=== PATIENT | female | born 1950 | race Caucasian/White ===

== ENCOUNTER → 2016-11-24 | Outpatient (CLI) | payer MEDICARE ==
[~2016-11-24] MED LIST: ACET65TA; ASPI325T; ATEN100T; FERR325T; HYDR25TA6; LISI10TA4; LISI20TA5; PERC5TAB8; PERC7.5T8; PRIL40CA; THERGRAN
[2016-11-24 18:23] LABS: ALBUMIN 3.9 GM/DL (3.2-5.2); ALBUMIN/GLOBULIN RATIO 1.3 (1.00-1.93); BILIRUBIN,TOTAL 0.4 MG/DL (0.2-1.0); CALCIUM LEVEL 8.6 MG/DL (8.8-10.2); CREATININE FOR GFR 1.11 MG/DL (0.55-1.02); GLOMERULAR FILTRATION RATE 52.2 (>45); POTASSIUM SERUM 4.2 MEQ/L (3.5-5.1); TOTAL PROTEIN 6.9 GM/DL (6.4-8.2)
== END ==
LOC: M WUC 10:56
PROVIDERS: ATTEND Nurse Practitioner Family
DX: I10 Essential (primary) hypertension (principal)

== ENCOUNTER → 2016-12-01 | Outpatient (CLI) | payer MEDICARE ==
--- NOTE | 2016-12-01 15:30 | ECGEPIP ---
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
== END ==
LOC: M EKG 14:52
PROVIDERS: ATTEND Orthopaedic Surgery
DX: I10 Essential (primary) hypertension (principal); I49.9 Cardiac arrhythmia, unspecified

== ENCOUNTER → 2017-01-09 | Outpatient (CLI) | payer MEDICARE ==
[2017-01-09 18:32] LABS: CALCIUM LEVEL 8.6 MG/DL (8.8-10.2); CREATININE FOR GFR 1.14 MG/DL (0.55-1.02); GLOMERULAR FILTRATION RATE 50.6 (>45); POTASSIUM SERUM 3.6 MEQ/L (3.5-5.1)
== END ==
LOC: M WUC 13:55
PROVIDERS: ATTEND Orthopaedic Surgery
DX: Z79.899 Other long term (current) drug therapy (principal)

== ENCOUNTER → 2017-10-04 | Outpatient (CLI) | payer MEDICARE ==
[2017-10-04 14:21] LABS: ALBUMIN 3.9 GM/DL (3.2-5.2); ALKALINE PHOSPHATASE 76 U/L (45-117); ALT/SGPT 30 U/L (12-78); ANION GAP 7 MEQ/L (8-16); AST/SGOT 22 U/L (7-37); BILIRUBIN,TOTAL 0.4 MG/DL (0.2-1.0); BLOOD UREA NITROGEN 18 MG/DL (7-18); CALCIUM LEVEL 8.4 MG/DL (8.8-10.2); CARBON DIOXIDE LEVEL 27 MEQ/L (21-32); CHLORIDE LEVEL 108 MEQ/L (98-107); CHOLESTEROL LEVEL 210 MG/DL (<200); CHOLESTEROL RISK RATIO 3.818 (<5); CREATININE FOR GFR 1.27 MG/DL (0.55-1.30); GLOMERULAR FILTRATION RATE 44.5 (>45); GLUCOSE, FASTING 99 MG/DL (70-100); HDL CHOLESTEROL 55 MG/DL (>40); NON-HDL-C 155 MG/DL; POTASSIUM SERUM 3.9 MEQ/L (3.5-5.1); SODIUM LEVEL 142 MEQ/L (136-145); TOTAL PROTEIN 6.9 GM/DL (6.4-8.2); TRIGLYCERIDES LEVEL 105 MG/DL (<150)
== END ==
LOC: M WUC 09:08
DX: I10 Essential (primary) hypertension (principal)
CPT/HCPCS: 80053

== ENCOUNTER → 2018-10-08 | Outpatient (CLI) | payer MEDICARE ==
[2018-10-08 13:45] LABS: ALBUMIN 4.1 GM/DL (3.2-5.2); BILIRUBIN,TOTAL 0.5 MG/DL (0.2-1.0); CALCIUM LEVEL 8.9 MG/DL (8.8-10.2); CHOLESTEROL RISK RATIO 2.761 (<5); CREATININE FOR GFR 1.31 MG/DL (0.55-1.30); GLOMERULAR FILTRATION RATE 42.9 (>45); POTASSIUM SERUM 4.2 MEQ/L (3.5-5.1); TOTAL PROTEIN 6.8 GM/DL (6.4-8.2)
== END ==
LOC: M WUC 09:36
PROVIDERS: ATTEND Nurse Practitioner Family
DX: I10 Essential (primary) hypertension (principal); E78.5 Hyperlipidemia, unspecified

== ENCOUNTER → 2019-06-04 | Outpatient (CLI) | payer MEDICARE ==
[2019-06-04 13:49] LABS: BILIRUBIN,TOTAL 0.5 MG/DL (0.2-1.0); CALCIUM LEVEL 9.3 MG/DL (8.8-10.2); CHOLESTEROL RISK RATIO 2.5 (<5); CREATININE FOR GFR 1.12 MG/DL (0.55-1.30); GLOMERULAR FILTRATION RATE 51.2 (>39); POTASSIUM SERUM 3.5 MEQ/L (3.5-5.1); TOTAL PROTEIN 7.2 GM/DL (6.4-8.2)
== END ==
LOC: M LAB 11:29
PROVIDERS: ATTEND Nurse Practitioner Family
DX: R10.13 Epigastric pain (principal); I10 Essential (primary) hypertension; E78.5 Hyperlipidemia, unspecified

== ENCOUNTER → 2020-06-09 | Outpatient (CLI) | payer MEDICAID, MEDICARE ==
[2020-06-09 13:53] LABS: BASO # 0.1 10^3/uL (0.0-0.2); EOS # 0.1 10^3/uL (0.0-0.5); HEMATOCRIT 38.2 % (36.0-47.0); HEMOGLOBIN 11.9 g/dl (12.0-15.5); LYMPH # 1.8 10^3/uL (1.5-5.0); LYMPH % 26.3 % (24.0-44.0); MEAN CORPUSCULAR HEMOGLOBIN 29.9 pg (27.0-33.0); MEAN CORPUSCULAR HGB CONC 31.2 g/dl (32.0-36.5); MONO # 0.7 10^3/uL (0.0-0.8); MONO % 9.9 % (0.0-5.0); NEUTROPHILS # 4.2 10^3/uL (1.5-8.5); NEUTROPHILS % 60.7 % (36.0-66.0); PLATELET COUNT, AUTOMATED 337 10^3/uL (150-450); RED BLOOD COUNT 3.98 10^6/uL (4.00-5.40); WHITE BLOOD COUNT 6.9 10^3/uL (4.0-10.0)
[2020-06-09 14:43] LABS: ALBUMIN 4.1 GM/DL (3.2-5.2); BILIRUBIN,TOTAL 0.6 MG/DL (0.2-1.0); CALCIUM LEVEL 9.7 MG/DL (8.8-10.2); CHOLESTEROL RISK RATIO 2.71 (<5); CREATININE FOR GFR 1.22 MG/DL (0.55-1.30); GLOMERULAR FILTRATION RATE 46.3 (>39); POTASSIUM SERUM 3.5 MEQ/L (3.5-5.1); THYROID STIMULATING HORMONE 1.44 uIU/ML (0.358-3.740); TOTAL 25(OH) VITAMIN D 49.6 NG/ML (30.0-100.0); TOTAL PROTEIN 7.6 GM/DL (6.4-8.2)
== END ==
LOC: M LAB 12:23
PROVIDERS: ATTEND Physician Assistant
DX: K21.9 Gastro-esophageal reflux disease without esophagitis (principal); F33.1 Major depressive disorder, recurrent, moderate; E78.2 Mixed hyperlipidemia; Z79.899 Other long term (current) drug therapy

== ENCOUNTER → 2020-06-14 | Outpatient (CLI) | payer MEDICARE ==
--- NOTE | 2020-06-14 12:14 | REP ---
INDICATION: SCIATICA, LEFT SIDE. COMPARISON: None. TECHNIQUE: Seven views including flexion extension lateral views. FINDINGS: There is a moderate levoconvex lumbar scoliosis. Vascular calcification is noted in a normal caliber aorta. Sacrum and SI joints are intact. Visualized bowel gas pattern is normal. Psoas margins are symmetric. On lateral radiographs, lumbar vertebral body heights are preserved and alignment is normal. There is no evidence of spondylolysis or spondylolisthesis. There are moderate degenerative disc changes throughout the lumbar spine and in the visualized lower thoracic levels. There is osteoarthritic facet sclerosis and hypertrophy bilaterally at L5-S1 and on the right in the mid lumbar levels associated with scoliosis. No bony destructive lesion is appreciated. IMPRESSION: Degenerative spondylosis changes. Moderate scoliosis, levoconvex. Some vascular calcification. No acute bony abnormality. No subluxation or instability on lateral views. <Electronically signed by Hakeem Buck > 06/14/20 [id number]
== END ==
LOC: M RAD 11:35
PROVIDERS: ATTEND Physician Assistant
DX: M54.32 Sciatica, left side (principal); M47.816 Spondylosis without myelopathy or radiculopathy, lumbar region; M41.86 Other forms of scoliosis, lumbar region

== ENCOUNTER → 2020-06-15 | Outpatient (CLI) | payer MEDICARE | LOC: M LABSMTC 14:15 | PROVIDERS: ATTEND Family Medicine | DX: Z20.828 Contact with and (suspected) exposure to other viral communicable diseases (principal) ==

== ENCOUNTER → 2020-08-07 | Outpatient (CLI) | payer MEDICARE ==
[~2020-08-07] MED LIST changes: +ASPI81TA26 PO; -ATEN100T; +ATEN100T PO; +CITA20TA7 PO; +D31000TA2 PO; +ESOM40CA35 PO; +FAMO40TA3 PO; +HYDR50TAB PO; +NIFE1TAB52 PO; +SIMV20TA22 PO; +SUCR1TAB56 PO; +TRAM100T21 PO; +VITATAB73 PO
== END ==
LOC: M LABSMTC 10:08
PROVIDERS: ATTEND Anesthesiology
DX: Z01.812 Encounter for preprocedural laboratory examination (principal); Z20.822 Contact with and (suspected) exposure to COVID-19

== ENCOUNTER 2020-08-12 09:03 | Day surgery (SDC) | payer MEDICARE ==
[~2020-08-12] VITALS: Ht 154.9 cm; Wt 61.1 kg
[~2020-08-12 09:03] MED LIST changes: +LIDOCAINE 2% 100MG/5ML SDV (FOR ANES.) As Ordered ONE; +NS 1,000 ML IV ONE; +fentaNYL 100 MCG/2 ML INJECTION (J3010) As Ordered ONE; +propofoL 200 MG/20 ML VIAL As Ordered ONE
--- OUTSIDE RECORDS SUMMARY | 2020-08-12 09:09 | CCD | Continuity of Care Document ---
Author Organization Unknown Address Unknown Phone Unavailable Care Team Providers Care Manufacturing Engineering Technologist Name Role Phone Juliana Villarreal D.O. AUTM [phone] Angelito Sanford M.D. AUTM [phone] Problems Active Problems Provider Date Essential hypertension Onset: 03/29/2020 Hypercholesterolemia TRUDI Brooks Onset: 05/12/2020 Raynaud's disease TRUDI Brooks Onset: 05/12/2020 Gastroesophageal reflux disease TRUDI Brooks Onset: 05/12/2020 Depressive disorder TRUDI Brooks Onset: 05/12/2020 Low back pain TRUDI Brooks Onset: 05/12/2020 Social History Type Date Description Comments Sex Unknown Tobacco Use Start: Unknown End: Unknown Quit 40 y ears ago Smoking Status Reviewed: 05/12/20 Quit 40 years ago ETOH Use Denies alcohol use Tobacco Use Start: Unknown End: Unknown Patient is a former smoker Recreational Drug Use Denies Drug Use Exercise Type/Frequency Exercises regularly Sun Exposure Does not use sunscreen Seat Belt/Car Seat Always uses seat belt Allergies, Adverse Reactions, Alerts Description No Known Drug Allergies Medications Active Medications SIG Qnty Indications Ordering Provide r Date Esomeprazole Magnesium 40mg Capsul es DR 1 by mouth every day 30caps Juliana Villarreal D.O. Tramadol HCL ER (Biphasic) 100mg Tablets ER 24HR take one tablet by mouth twice daily for pain MDD 2 Is top [id number] 60tabs Juliana Villarreal D.O. 05/12/2020 Simvastatin 20mg Tablets take one tablet by mouth each night 30tabs Nurys Dennis.O. 0 Procardia XL 30mg Tablets ER 24HR 1 tab by mouth daily 90tabs Nurys Denins.O. Atenolol 50mg Tablets 1 by mouth every day 90tabs Juliana Villarreal D.O. Hydrochlorothiazide 50mg Tablets 1 by mouth every day 90tabs Juliana Villarreal D.O. Citalopram Hydrobromide 20mg Table ts 1 by mouth every day 30tabs Juliana Villarreal D.O. Vitamin B Complex Tablets 1 by mouth every day Unknown Vitamin D3 50mcg (1999 Ut) Capsule s 1 by mouth every day Unknown Aspirin 81 Low Dose 81mg Chewtabs 1 by mouth every day Unknown Sucralfate 1gm Tablets by mouth four times a day and at bedtime 120tabs Nurys Dennis.O. Medications Administered in Office Medication SIG Qnty Indications Ordering Provider Date Immunization Administration Single Or Co mbination Injection Nurse 05/13/2020 Immunizations CPT Code Status Date Vaccine Lot # [id number] Given 05/13/2020 Influenza Virus Vaccine, Quadrivalent, Split, Preservative Free [id number] Vital Signs Date Vital Result Comment 05/12/2020 2:17pm BP Systolic 130 mmHg BP Diastolic 90 mmHg Height 58.6 inches 4'10.60" Weight 143.00 lb BMI (Body Mass Index) 29.3 kg/m2 Heart Rate 70 /min Respiratory Rate 16 /min Body Temperature 97.2 F O2 % BldC Oximetry 97 % [place] Body Weight 100 lb Results Test Acquired Date Facility Test Result H/L Range Note Coronavirus 2019 Nasopharygeal 06/15/2020 [facility] Outpa tient Testing (Registration) [address] [place] [address] [phone] Coronavirus 2019 Nasopharygeal This nucleic aci <SEE N OTE> 1 Laboratory test finding 06/09/2020 [facility] Outpatient T esting (Registration) [address] [place] [address] [phone] H Pylori Serum Quant IgG Caryl 0.27 Normal 0.0 0-0.79 2 CBC With Differential 06/09/2020 [facility] Outpatient [place] ting (Registration) [address] [place] [address] [phone] White Blood Count 6.9 10 Normal 4.0-10.0 Red Blood Count 3.98 10 Low 4.00-5.40 Hemoglobin 11.9 g/dL Low 12.0-15.5 Hematocrit 38.2 % Normal 36.0-47.0 Mean Corpuscular Volume 96.0 fl Normal 80.0-96.0 Mean Corpuscular Hemoglobin 29.9 pg Normal 27.0-33.0 Mean Corpuscular HGB Conc 31.2 g/dL Low 32.0-36.5 Red Cell Distribution Width 13.2 % Normal 11.5-14.5 Platelet Count, Automated 337 10 Normal 150-450 Neutrophils % 60.7 % Normal 36.0-66.0 Lymph % 26.3 % Normal 24.0-44.0 [place] % 9.9 % High 0.0-5.0 Eos % 2.0 % Normal 0.0-3.0 Baso % 1.0 % Normal 0.0-1.0 Immature Granulocyte % 0.1 % Normal 0-3.0 Nucleated Red Blood Cell % 0.0 % Normal 0-0 Neutrophils # 4.2 10 Normal 1.5-8.5 Lymph # 1.8 10 Normal 1.5-5.0 [place] # 0.7 10 Normal 0.0-0.8 Eos # 0.1 10 Normal 0.0-0.5 Baso # 0.1 10 Normal 0.0-0.2 Comprehensive Metabolic Profil 06/09/2020 [facility] Outpa tient Testing (Registration) [address] [place] [address] [phone] Glucose, Fasting 79 mg/dL Normal 70-100 Blood Urea Nitrogen 21 mg/dL High 7-18 Creatinine For GFR 1.22 mg/dL Normal 0.55-1.30 Glomerular Filtration Rate 46.3 Normal >39 3 Sodium Level 138 mEq/L Normal 136-145 Potassium Serum 3.5 mEq/L Normal 3.5-5.1 Chloride Level 102 mEq/L Normal 98-107 Carbon Dioxide Level 28 mEq/L Normal 21-32 Anion Gap 8 mEq/L Normal 8-16 Calcium Level 9.7 mg/dL Normal 8.8-10.2 Ast/Sgot 14 U/L Normal 7-37 Alt/SGPT 20 U/L Normal 12-78 Alkaline Phosphatase 64 U/L Normal 45-117 Bilirubin,Total 0.6 mg/dL Normal 0.2-1.0 Total Protein 7.6 GM/DL Normal 6.4-8.2 Albumin 4.1 GM/DL Normal 3.2-5.2 Albumin/Globulin Ratio 1.2 Normal 1.2-2.2 FT4&TSH Panel 06/09/2020 [facility] Outpatient Testi ng (Registration) [address] [place] [address] [phone] Thyroid Stimulating Hormone 1.440 uIU/ML Normal 0. 358-3.740 Free T4 1.00 ng/dL Normal 0.76-1.46 Lipid Panel 06/09/2020 [facility] Outpatient Testi ng (Registration) [address] [place] [address] [phone] Triglycerides Level 79 mg/dL Normal <150 Cholesterol Level 187 mg/dL Normal <200 HDL Cholesterol 69 mg/dL Normal >40 LDL Cholesterol 102 mg/dL High <100 Non-HDL-C 118 mg/dL Normal Cholesterol Risk Ratio 2.710 Normal <5 Laboratory test finding 06/09/2020 [facility] Outpatient T esting (Registration) [address] [place] [address] [phone] Total 25(Oh) Vitamin D 49.6 NG/ML Normal 30.0-100. 0 1 This nucleic acid amplificat ion test was developed and its performance characteristics determined by [employer]. Nucleic acid amplification tests include PCR and TMA. This test has not been FDA cleared or approved. This test has been authorized by FDA under an Emergency Use Authorization (EUA). This test is only authorized for the duration of time the declaration that circumstances exist justifying the authorization of the emergency use of in vitro diagnostic tests for detection of SARS-CoV-2 virus and/or diagnosis of COVID-19 infection under section 564(b)(1) of the Act, 21 U.S.C. 360bbb-3 (b) (1), unless the authorization is terminated or revoked sooner. When diagnostic testing is negative, the possibility of a false negative result should be considered in the context of a patient's recent exposures and the presence of clinical signs and symptoms consistent with COVID-19. An individual without symptoms of COVID-19 and who is not shedding SARS-CoV-2 virus would expect to have a negative (not detected) result in this assay. Performed at: [facility] [address] [facility], [place] [address] [id number] Independent Insurance Adjuster: Jacey Zee PhD, Phone: [phone] Detected 2 Result Units: Index Value Negative <0.80 Equivocal 0.80 - 0.89 Positive >0.89 Performed at: - [facility] [id number] Independent Insurance Adjuster: Lisha Villa MD, Phone: [phone] 3 Units are mL/min/1.73 m2 Chronic Kidney Disease Staging per NKF: Stage I & II GFR >=60 Normal to Mildly Decreased Stage III GFR 30-59 Moderately Decreased Stage IV GFR 15-29 Severely Decreased Stage V GFR <15 Very Little GFR Left ESRD GFR <15 on TERRITORY MANAGER Procedures Description No Information Available Medical Devices Description No Information Available Encounters Type Date Location Provider Dx Diagnosis Office Visit 05/13/2020 2:00p Family Medicine [facility] N becky Z23 Encounter for immunization Office Visit 05/12/2020 2:20p [facility] TRUDI Brooks K21.9 Gastro-esophageal reflux dis ease without esophagitis M54.32 Sciatica, left side F33.1 Major depressive disorder, r ecurrent, moderate Z12.31 Encntr screen mammogram for malignant neoplasm of breast I10 Essential (primary) hyperten aubrey E78.2 Mixed hyperlipidemia Assessments Date Code Description Provider 05/13/2020 Z23 Encounter for immunization Nurse 05/12/2020 K21.9 Gastro-esophageal reflux disease without esophagitis TRUDI Brooks 05/12/2020 M54.32 Sciatica, left side TRUDI Mueller 05/12/2020 F33.1 Major depressive disorder, recur rent, moderate TRUDI Brooks 05/12/2020 Z12.31 Encounter for screen ing mammogram for malignant neoplasm of breast TRUDI Brooks 05/12/2020 I10 Essential (primary) hypertension TRUDI Brooks 05/12/2020 E78.2 Mixed hyperlipidemia TRUDI Segura Plan of Treatment Future Appointment(s):* 06/23/2020 11:20 am - TRUDI Brooks at [facility] Functional Status Description No Information Available Mental Status Description No Information Available Referrals Refer to Reason for Referral Status Appt Date Angelito Sanford M.D. 69 year old female with sign ificant history of reflux and ulcers, in need of upper endoscopy, and due for colonoscopy. Please eval and treat. Sent [address] [id number] [phone]
--- OUTSIDE RECORDS SUMMARY | 2020-08-12 09:09 | CCD | Continuity of Care Document ---
Author Author Nurse, Kourtney Craig Organization Unknown Address [address] [place] [address] [address] [place] [address] Phone [phone] Care Team Providers Care Junior Php Developer Name Role Phone Juliana Villarreal D.O. AUTM [phone] Angelito Sanford M.D. AUTM [phone] Problems Active Problems Provider Date Essential hypertension [...] daily for pain MDD 2 Is top [id number] 60tabs Juliana Villarreal D.O. 05/12/2020 Simvastatin 20mg Tablets take one tablet by mouth each night 30tabs Juliana Villarreal, D.O. 0 Procardia XL 30mg Tablets ER 24HR 1 tab by mouth daily Unknown Atenolol 50mg Tablets 1 by mouth every day Unknown Hydrochlorothiazide 50mg Tablets 1 by mouth every day Unknown Citalopram Hydrobromide 20mg Table ts 1 by mouth every day 30tabs Juliana Villarreal D.O. Vitamin B Complex Tablets 1 by mouth every day Unknown Vitamin D3 50mcg (1999 Ut) Capsule s 1 by mouth every day Unknown Aspirin 81 Low Dose 81mg Chewtabs 1 by mouth every day Unknown Sucralfate 1gm Tablets by mouth four times a day and at bedtime 120tabs Juliana Villarreal D.O. Medications Administered in Office Medication SIG Qnty Indications Ordering Provider Date Immunization Administration Single Or Co mbination Injection Nurse 05/13/2020 Immunizations CPT Code Status Date Vaccine Lot # [id number] Given 05/13/2020 Influenza Virus Vaccine, Quadrivalent, Split, Preservative Free [id number] Vital Signs Date Vital Result Comment 05/12/2020 2:17pm BP Systolic 130 mmHg BP Diastolic 90 mmHg Height 58.6 inches 4'10.60" Weight 143.00 lb BMI (Body Mass Index) 29.3 kg/m2 Heart Rate 70 /min Respiratory Rate 16 /min Body Temperature 97.2 F O2 % BldC Oximetry 97 % [place] Body Weight 100 lb Results Description No Information Available Procedures Description No Information Available Medical Devices Description No Information Available Encounters Type Date Location Provider Dx Diagnosis Office Visit 05/13/2020 2:00p Family [facility] Tate pena Z23 Encounter for immunization Office Visit 05/12/2020 2:20p Family [facility] TRUDI Black K21.9 Gastro-esophageal reflux dis ease without esophagitis [...] 06/23/2020 11:20 am - TRUDI Brooks at [facility] Functional Status Description No Information Available Mental Status Description No Information Available Referrals Refer to Reason for Referral Status Appt Date Angelito Sanford M.D. 69 year old female with sign ificant history of reflux and ulcers, in need of upper endoscopy, and due for colonoscopy. Please eval and treat. Sent 826 [facility] [address] [place] [address] [phone]
--- OUTSIDE RECORDS SUMMARY | 2020-08-12 09:09 | CCD | Continuity of Care Document ---
Author Author Kourtney BECKER Organization Unknown Address [address] [place] [address] 6 [address] [place] [address] Phone [phone] Care Team Providers Care Hand Edge Bander Name Role Phone Juliana Villarreal D.O. AUTM Angelito Sanford M.D. AUTM [phone] Problems Active Problems Provider Date Essential hypertension [...] daily for pain MDD 2 Is top [id number] 60tabs Juliana Villarreal D.O. 05/12/2020 Simvastatin 20mg Tablets take one tablet by mouth each night 30tabs Juliana Villarreal D.O. 0 Procardia XL 30mg Tablets ER 24HR 1 tab by mouth daily 90tabs Nurys Dennis.O. Atenolol 50mg Tablets 1 by mouth every [...] CPT Code Status Date Vaccine Lot # [id number] Given 05/13/2020 Influenza Virus Vaccine, Quadrivalent, Split, Preservative Free [id number] Vital Signs Date Vital Result Comment 05/12/2020 2:17pm BP Systolic 130 mmHg BP Diastolic 90 mmHg Height 58.6 inches 4'10.60" Weight 143.00 lb BMI (Body Mass Index) 29.3 kg/m2 Heart Rate 70 /min Respiratory Rate 16 /min Body Temperature 97.2 F O2 % BldC Oximetry 97 % [place] Body Weight 100 lb Results Test Acquired Date Facility Test Result H/L Range Note Laboratory test finding 06/09/2020 [facility] Outpatient T leny (Registration) [address] [place] [address] [phone] H Pylori Serum Quant IgG Caryl 0.27 Normal 0.0 0-0.79 1 CBC With Differential 06/09/2020 [facility] Outpatient [place] jeronimo (Registration) [address] [place] [address] [phone] White Blood Count 6.9 10 Normal 4.0-10.0 [...] 36.0-66.0 Lymph % 26.3 % Normal 24.0-44.0 [place] % 9.9 % High 0.0-5.0 Eos % 2.0 % Normal 0.0-3.0 Baso % 1.0 % Normal 0.0-1.0 Immature Granulocyte % 0.1 % Normal 0-3.0 Nucleated Red Blood Cell % 0.0 % Normal 0-0 Neutrophils # 4.2 10 Normal 1.5-8.5 Lymph # 1.8 10 Normal 1.5-5.0 [place] # 0.7 10 Normal 0.0-0.8 Eos # 0.1 10 Normal 0.0-0.5 Baso # 0.1 10 Normal 0.0-0.2 Comprehensive Metabolic Profil 06/09/2020 [facility] Outpa tient Testing (Registration) [address] [place] [address] [phone] Glucose, Fasting 79 mg/dL Normal 70-100 Blood Urea Nitrogen 21 mg/dL High 7-18 Creatinine For GFR 1.22 mg/dL Normal 0.55-1.30 Glomerular Filtration Rate 46.3 Normal >39 2 Sodium Level 138 mEq/L Normal 136-145 Potassium [...] Ratio 1.2 Normal 1.2-2.2 FT4&TSH Panel 06/09/2020 [facility] Outpatient Testi ng (Registration) [address] [place] [address] [phone] Thyroid Stimulating Hormone 1.440 uIU/ML Normal 0. 358-3.740 Free T4 1.00 ng/dL Normal 0.76-1.46 Lipid Panel 06/09/2020 [facility] Outpatient Testi ng (Registration) [address] [place] [address] [phone] Triglycerides Level 79 mg/dL Normal <150 Cholesterol Level 187 mg/dL Normal <200 HDL Cholesterol 69 mg/dL Normal >40 LDL Cholesterol 102 mg/dL High <100 Non-HDL-C 118 mg/dL Normal Cholesterol Risk Ratio 2.710 Normal <5 Laboratory test finding 06/09/2020 [facility] Outpatient T esting (Registration) [address] [place] [address] [phone] Total 25(Oh) Vitamin D 49.6 NG/ML Normal 30.0-100. 0 1 Result Units: Index Value Negative <0.80 Equivocal 0.80 - 0.89 Positive >0.89 Performed at: RN - [facility] [address] [id number] Decorator Inspector: Lisha Villa MD, Phone: [phone] 2 Units are mL/min/1.73 m2 Chronic Kidney Disease Staging per NKF: Stage I & II GFR >=60 Normal to Mildly Decreased Stage III GFR 30-59 Moderately Decreased Stage IV GFR 15-29 Severely Decreased Stage V GFR <15 Very Little GFR Left ESRD GFR <15 on CERTIFIED MEDICAL DOSIMETRIST Procedures Description No Information Available Medical Devices Description No Information Available Encounters Type Date Location Provider Dx Diagnosis Office Visit 05/13/2020 2:00p Family Medicine [facility] Tate pen[place] Z23 Encounter for immunization Office Visit 05/12/2020 2:20p [facility] TRUDI Brooks K21.9 Gastro-esophageal reflux dis ease [...] colonoscopy. Please eval and treat. Sent [address] [address] [phone]
--- OUTSIDE RECORDS SUMMARY | 2020-08-12 09:09 | CCD | Continuity of Care Document ---
Author Author Kourtney BECKER Organization Unknown Address [address] [place] [address] 6 [address] [place] [address] Phone [phone] Care Team Providers Care Printing Film Stripper Name Role Phone Juliana Villarreal D.O. AUTM Angelito Sanford M.D. AUTM [phone] Problems Active Problems Provider Date Essential hypertension [...] daily for pain MDD 2 Is top [id number] 60tabs Juliana Villarreal D.O. 05/12/2020 Simvastatin 20mg [...] CPT Code Status Date Vaccine Lot # [id number] Given 05/13/2020 Influenza Virus Vaccine, Quadrivalent, Split, Preservative Free [id number] Vital Signs Date Vital Result Comment 05/12/2020 2:17pm BP Systolic 130 mmHg BP Diastolic 90 mmHg Height 58.6 inches 4'10.60" Weight 143.00 lb BMI (Body Mass Index) 29.3 kg/m2 Heart Rate 70 /min Respiratory Rate 16 /min Body Temperature 97.2 F O2 % BldC Oximetry 97 % [place] Body Weight 100 lb Results Description No Information Available Procedures Description No Information Available Medical Devices Description No Information Available Encounters Type Date Location Provider Dx Diagnosis Office Visit 05/13/2020 2:00p [facility] Tate pen[place] Z23 Encounter for immunization Office Visit 05/12/2020 2:20p Family [facility] TRUDI Brooks K21.9 Gastro-esophageal reflux dis [...] 06/23/2020 11:20 am - TRUDI Brooks at [facility] Functional Status Description No Information Available Mental Status Description No Information Available Referrals Refer to Dr Reason for Referral Status Appt Date Angelito Sanford M.D. 69 year old female with sign ificant history of reflux and ulcers, in need of upper endoscopy, and due for colonoscopy. Please eval and treat. Sent [address] [address] [phone]
--- OUTSIDE RECORDS SUMMARY | 2020-08-12 09:09 | CCD | Continuity of Care Document ---
Author Author Kourtney SANFORD MD Organization Unknown Address [address] [place] [address] Phone [phone] Care Team Providers Care Lock Maintenance Supervisor Name Role Phone Bao Martinez AUTM [phone] Juliana Villarreal D.O. AUTM Problems Active Problems Provider Date Essential hypertension Angelito Sanford JR, MD Onset: 07/07/20 20 Social History Type Date Description Comments Sex Unknown ETOH Use Denies alcohol use Tobacco Use Start: Unknown End: Patient is a former smoker Recreational Drug Use Denies Drug Use Allergies, Adverse Reactions, Alerts Description No Known Drug Allergies Medications Active Medications SIG Qnty Indications Ordering Provide r Date Famotidine 40mg Tablets 1 by mouth twice a day 60tabs Angelito Sanford JR, MD 07/07/2020 Tramadol HCL ER 100mg Tablets ER 24HR prn Bao Martinez RPA-C Sucralfate 1gm Tablets 1 tab po tid Bao Martinez RPA-C Atenolol 50mg Tablets 1 tab p o qd Bao Martinez, [facility] Citalopram Hydrobromide 20mg Table ts 1 tab po qd Bao Martinez, [facility] Esomeprazole Magnesium 40mg Capsul es DR 1 tab po qd Bao Martinez, [facility] Simvastatin 20mg Tablets 1 ta b po qd Bao Martinez, [facility] Hydrochlorothiazide 50mg Tablets Take One Tablet By Mouth Every Day Unknown Nifedipine ER Osmotic Release 30mg Tablets ER 24HR Take One Tablet By Mouth Every Day Unknow n Aspirin [address] take 1 tab by mouth daily Unknown Immunizations Description No Information Available Vital Signs Date Vital Result Comment 07/07/2020 9:32am BP Systolic 137 mmHg BP Diastolic 77 mmHg Height 60 inches 5'0" Weight 137.50 lb BMI (Body Mass Index) 26.9 kg/m2 [place] Body Weight 100 lb Weight 62.370 kg BSA (Body Surface Area) 1.59 m2 Results Description No Information Available Procedures Description No Information Available Medical Devices Description No Information Available Encounters Description No Information Available Assessments Description No Information Available Plan of Treatment No Information Available Functional Status Description No Information Available Mental Status Description No Information Available Referrals Refer to Reason for Referral Status Appt Date Angelito Sanford JR, MD COLONOSCOPY/EGD Scheduled 05/18/[address] [place] [address] [phone]
--- OUTSIDE RECORDS SUMMARY | 2020-08-12 09:09 | CCD ---
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 Name Role Phone Juan, Bao PA Unavailable Unavailable Juan, Bao PA Unavailable Unavailable Juan, Bao PA Unavailable Unavailable Juan, Bao PA Unavailable Unavailable Juan, Bao PA Unavailable Unavailable Juan, Bao PA Unavailable Unavailable Juan, Bao PA Unavailable Unavailable Juan, Bao PA Unavailable Unavailable Juan, Bao PA Unavailable Unavailable Juan, Bao PA Unavailable Unavailable Juan, Bao PA Unavailable Unavailable Juan, Bao PA Unavailable Unavailable Juan, Bao PA Unavailable Unavailable Juan, Bao PA Unavailable Unavailable Juan, Bao PA Unavailable Unavailable Juan, Bao PA Unavailable Unavailable Juan, Bao PA Unavailable Unavailable Juan, Bao PA Unavailable Unavailable Juan, Bao PA Unavailable Unavailable Juan, Bao PA Unavailable Unavailable Juan, Bao PA Unavailable Unavailable Juan, Bao PA Unavailable Unavailable Juan, Bao PA Unavailable Unavailable Juan, Bao PA Unavailable Unavailable Juan, Bao PA Unavailable Unavailable Juan, Bao PA Unavailable Unavailable Juan, Bao PA Unavailable Unavailable Juan, Bao PA Unavailable Unavailable Juan, Bao PA Unavailable Unavailable Juan, Bao PA Unavailable Unavailable Juan, Bao PA Unavailable Unavailable Juan, Bao PA Unavailable Unavailable Juan, Bao PA Unavailable Unavailable Juan, Bao PA Unavailable Unavailable Juan, Bao PA Unavailable Unavailable Juan, Bao PA Unavailable Unavailable Juan, Bao PA Unavailable Unavailable Juan, Bao PA Unavailable Unavailable Juan, Bao PA Unavailable Unavailable Juan, Bao PA Unavailable Unavailable Juan, Bao PA Unavailable Unavailable Juan, Bao PA Unavailable Unavailable Juan, Bao PA Unavailable Unavailable Juan, Bao PA Unavailable Unavailable Juan, Bao PA Unavailable Unavailable Juan, Bao PA Unavailable Unavailable Juan, Bao PA Unavailable Unavailable Juan, Bao PA Unavailable Unavailable [facility][id number], NA Unavailable Unavailable Re-disclosure Warning The records that you are about to access may contain information from federally-assisted alcohol or drug abuse programs. If such information is present, then the following federally mandated warning applies: This information has been disclosed to you from records protected by federal confidentiality rules (42 CFR part 2). The federal rules prohibit you from making any further disclosure of this information unless further disclosure is expressly permitted by the written consent of the person to whom it pertains or as otherwise permitted by 42 CFR part 2. A general authorization for the release of medical or other information is NOT sufficient for this purpose. The Federal rules restrict any use of the information to criminally investigate or prosecute any alcohol or drug abuse patient.The records that you are about to access may contain highly sensitive health information, the redisclosure of which is protected by Article 27-F of the [facility] Public Health law. If you continue you may have access to information: Regarding HIV / AIDS; Provided by facilities licensed or operated by the [facility] Office of Mental Health; or Provided by the [facility] Office for People With Developmental Disabilities. If such information is present, then the following [facility] mandated warning applies: This information has been disclosed to you from confidential records which are protected by state law. State law prohibits you from making any further disclosure of this information without the specific written consent of the person to whom it pertains, or as otherwise permitted by law. Any unauthorized further disclosure in violation of state law may result in a fine or detention sentence or both. A general authorization for the release of medical or other information is NOT sufficient authorization for further disc losure. Family History Family Member Name Family Member Gender Family Member Status Date o f Status Description Data Source(s) Unknown Unknown Problem [facility] ([facility]) Unknown Unknown Problem [facility] ([facility]) Unknown Unknown Problem [facility] ([facility]) Encounters Encounter Providers Location Date Indications Data Source(s ) Outpatient Attender: CAIN [id number] 05/13/2020 02:00:00 PM EDT [facility] ([facility]) Outpatient Attender: Bao BRUSH [facility] 05/12/2020 02:20:00 PM EDT [facility] ([facility]) Immunizations Vaccine Date Status Description Data Source(s) New in 2011. IIV4 05/13/2020 02:00:00 PM EDT completed [facility] ([facility]) Medications Medication Brand Name Start Date Product Form Dose Route Admi nistrative Instructions Pharmacy Instructions Status Indications Reaction Description Data Source(s) 1 gram 08/09/2020 12:00:00 AM EST tablet 120 TAKE ONE TABLET BY MOUTH FOUR TIMES A DAY BEFORE MEALS AND AT BEDTIME TAKE ONE TABLET BY MOUTH FOUR TIMES A DAY BEFORE MEALS AND AT BEDTIME SOLD: 08/10/2020 [facility] 17.5-3.13-1.6 gram 08/06/2020 12:00:00 AM EST recon soln 354 USE PER DRS INSTRUCTIONS USE PER DRS INSTRUCTIONS SOLD: 08/10/2020 [facility] 100 mg 08/03/2020 12:00:00 AM EST tablet extended release 24 hr 60 TAKE ONE TABLET BY MOUTH TWICE A DAY FOR PAIN MAXIMUM DAILY DOSE = 2 TABLETS TAKE ONE TABLET BY MOUTH TWICE A DAY FOR PAIN MAXIMUM DAILY DOSE = 2 TABLETS SOLD: 08/05/2020 [facility] Citalopram 20 MG Oral Tablet CITALOPRAM HYDROBROMIDE 07/12/2020 12:00:00 AM EST tablet 30 TAKE ONE TABLET BY MOUTH EVERY D AY TAKE ONE TABLET BY MOUTH EVERY DAY SOLD: 07/12/2020 [facility] Famotidine 40 MG Oral Tablet Famotidine 07/07/2020 12:00:00 AM EST ORAL active [facility] ([facility], ) Famotidine 40 MG Oral Tablet FAMOTIDINE 07/07/2020 12:00:00 AM EST tab let 60 TAKE ONE TABLET BY MOUTH TWICE A DAY TAKE ONE TABLET BY MOUTH TWICE A DAY SOLD: 07/12/2020 [facility] Famotidine 40 MG Oral Tablet FAMOTIDINE 07/07/2020 12:00:00 AM EST tab let 60 TAKE ONE TABLET BY MOUTH TWICE A DAY TAKE ONE TABLET BY MOUTH TWICE A DAY SOLD: 08/10/2020 [facility] Aten[facility]ol 50 MG Oral Tablet ATENOLOL 06/17/2020 12:00:00 AM EST tablet 90 TAKE ONE TABLET BY MOUTH EVERY DAY TAKE ONE TABLET BY MOUTH EVERY DAY SOLD: 06/18/2020 [facility] 30 mg 05/25/2020 12:00:00 AM EST tablet extended release 24hr 90 TAKE ONE TABLET BY MOUTH EVERY DAY TAKE ONE TABLET BY MOUTH EVERY DAY SOLD: 08/10/2020 [facility] Hydrochlorothiazide 50 MG Oral Tablet HYDROCHLOROTHIAZIDE 12:00:00 AM EST tablet 90 TAKE ONE TABLET BY MOUTH KARIE DAY TAKE ONE TABLET BY MOUTH EVERY DAY SOLD: 08/10/2020 [facility] Hydrochlorothiazide 50 MG Oral Tablet HYDROCHLOROTHIAZIDE 12:00:00 AM EST tablet 90 TAKE ONE TABLET BY MOUTH KARIE DAY TAKE ONE TABLET BY MOUTH EVERY DAY SOLD: 05/28/2020 [facility] 30 mg 05/25/2020 12:00:00 AM EST tablet extended release 24hr 90 TAKE ONE TABLET BY MOUTH EVERY DAY TAKE ONE TABLET BY MOUTH EVERY DAY SOLD: 05/28/2020 [facility] 1 gram 05/13/2020 12:00:00 AM EDT tablet 120 TAKE ONE TABLET BY MOUTH FOUR TIMES A DAY AND AT BEDTIME TAKE ONE TABLET BY MOUTH FOUR TIMES A DA Y AND AT BEDTIME SOLD: 06/18/2020 [facility] 20 mg 05/13/2020 12:00:00 AM EDT tablet 30 TAKE ONE TABLET BY MOUTH EVERY EVENING TAKE ONE TABLET BY MOUTH EVERY EVENING SOLD: 05/13/2020 [facility] Esomeprazole 40 MG Delayed Release Oral Capsule ESOMEPRAZOLE MAGNESIUM 05/13/2020 12:00:00 AM EDT capsule,delayed release(DR/EC) 25 TAKE ONE CAPSULE BY MOUTH EVERY DAY TAKE ONE CAPSULE BY MOUTH EVERY DAY SOLD: 05/18/2020 [facility] Esomeprazole 40 MG Delayed Release Oral Capsule ESOMEPRAZOLE MAGNESIUM 05/13/2020 12:00:00 AM EDT capsule,delayed release(DR/EC) 30 TAKE ONE CAPSULE BY MOUTH EVERY DAY TAKE ONE CAPSULE BY MOUTH EVERY DAY SOLD: 06/12/2020 [facility] 100 mg 05/13/2020 12:00:00 AM EDT tablet extended release 24 hr 50 TAKE ONE TABLET BY MOUTH TWICE A DAY NEEDED FOR PAIN MAXIMUM DAILY DOSE = TWO TABLETS TAKE ONE TABLET BY MOUTH TWICE A DAY NEEDED FOR PAIN MAXIMUM DAILY DOSE = TWO TABLETS SOLD: 05/18/2020 [facility] 40 mg 05/13/2020 12:00:00 AM EDT capsule,delayed release (DR/EC) 30 TAKE ONE CAPSULE BY MOUTH EVERY DAY TAKE ONE CAPSULE BY MOUTH EVERY DAY SOLD: 07/12/2020 [facility] 1 gram 05/13/2020 12:00:00 AM EDT tablet 100 TAKE ONE TABLET BY MOUTH FOUR TIMES A DAY AND AT BEDTIME TAKE ONE TABLET BY MOUTH FOUR TIMES A DA Y AND AT BEDTIME SOLD: 05/18/2020 [facility] 20 mg 05/13/2020 12:00:00 AM EDT tablet 30 TAKE ONE TABLET BY MOUTH EVERY DAY TAKE ONE TABLET BY MOUTH EVERY DAY SOLD: 05/13/2020 [facility] 40 mg 05/13/2020 12:00:00 AM EDT capsule,delayed release (DR/EC) 30 TAKE ONE CAPSULE BY MOUTH EVERY DAY TAKE ONE CAPSULE BY MOUTH EVERY DAY SOLD: 08/10/2020 [facility] Immunization Administration Single Or Combination 05/13/2020 12:00:00 AM EDT [facility] Medication administered onsite Citalopram 20 MG Oral Tablet CITALOPRAM HYDROBROMIDE 05/13/2020 12:00:00 AM EDT tablet 30 TAKE ONE TABLET BY MOUTH EVERY D AY TAKE ONE TABLET BY MOUTH EVERY DAY SOLD: 06/12/2020 [facility] 20 mg 05/13/2020 12:00:00 AM EDT tablet 30 TAKE ONE TABLET BY MOUTH EVERY EVENING TAKE ONE TABLET BY MOUTH EVERY EVENING SOLD: 07/12/2020 [facility] 100 mg 05/13/2020 12:00:00 AM EDT tablet extended release 24 hr 60 TAKE ONE TABLET BY MOUTH TWICE A DAY NEEDED FOR PAIN MAXIMUM DAILY DOSE = TWO TABLETS TAKE ONE TABLET BY MOUTH TWICE A DAY NEEDED FOR PAIN MAXIMUM DAILY DOSE = TWO TABLETS SOLD: 06/28/2020 [facility] 20 mg 05/13/2020 12:00:00 AM EDT tablet 30 TAKE ONE TABLET BY MOUTH EVERY EVENING TAKE ONE TABLET BY MOUTH EVERY EVENING SOLD: 08/10/2020 [facility] 20 mg 05/13/2020 12:00:00 AM EDT tablet 30 TAKE ONE TABLET BY MOUTH EVERY EVENING TAKE ONE TABLET BY MOUTH EVERY EVENING SOLD: 06/12/2020 [facility] Esomeprazole 40 MG Delayed Release Oral Capsule Esomeprazole Magnesium 05/12/2020 12:00:00 AM EDT ORAL active [facility] ([facility]) Tramadol HCL ER (Biphasic) Tramadol HCL ER (Biphasic) 2019 12:00:00 AM EDT ORAL active [facility] ([facility]) 1 gram 11/27/2019 12:00:00 AM EDT tablet 60 TAKE ONE TABLET BY MOUTH TWICE A DAY ON AN EMPTY STOMACH TAKE ONE TABLET BY MOUTH TWICE A DAY ON AN EMPTY STOMACH SOLD: 02/03/2020 [facility] 20 mg 11/27/2019 12:00:00 AM EDT tablet 30 TAKE ONE TABLET BY MOUTH EVERY EVENING TAKE ONE TABLET BY MOUTH EVERY EVENING SOLD: 11/28/2019 [facility] 20 mg 11/27/2019 12:00:00 AM EDT tablet 30 TAKE ONE TABLET BY MOUTH EVERY EVENING TAKE ONE TABLET BY MOUTH EVERY EVENING SOLD: 01/27/2020 [facility] 20 mg 11/27/2019 12:00:00 AM EDT tablet 30 TAKE ONE TABLET BY MOUTH EVERY EVENING TAKE ONE TABLET BY MOUTH EVERY EVENING SOLD: 12/27/2019 [facility] 1 gram 11/27/2019 12:00:00 AM EDT tablet 60 TAKE ONE TABLET BY MOUTH TWICE A DAY ON AN EMPTY STOMACH TAKE ONE TABLET BY MOUTH TWICE A DAY ON AN EMPTY STOMACH SOLD: 11/28/2019 [facility] 1 gram 11/27/2019 12:00:00 AM EDT tablet 60 TAKE ONE TABLET BY MOUTH TWICE A DAY ON AN EMPTY STOMACH TAKE ONE TABLET BY MOUTH TWICE A DAY ON AN EMPTY STOMACH SOLD: 12/27/2019 [facility] 50 mg 08/28/2019 12:00:00 AM EST tablet 120 TAKE ONE TABLET BY MOUTH EVERY 4 TO 6 HOURS NEEDED MAXIMUM DAILY DOSE = 4 TABLETS TAKE ONE TABLET BY MOUTH EVERY 4 TO 6 HOURS NEEDED MAXIMUM DAILY DOSE = 4 TABLETS SOLD: 02/17/2020 [facility] 50 mg 08/28/2019 12:00:00 AM EST tablet 120 TAKE ONE TABLET BY MOUTH EVERY 4 TO 6 HOURS NEEDED MAXIMUM DAILY DOSE = 4 TABLETS TAKE ONE TABLET BY MOUTH EVERY 4 TO 6 HOURS NEEDED MAXIMUM DAILY DOSE = 4 TABLETS SOLD: 01/18/2020 [facility] 50 mg 08/28/2019 12:00:00 AM EST tablet 120 TAKE ONE TABLET BY MOUTH EVERY 4 TO 6 HOURS NEEDED MAXIMUM DAILY DOSE = 4 TABLETS TAKE ONE TABLET BY MOUTH EVERY 4 TO 6 HOURS NEEDED MAXIMUM DAILY DOSE = 4 TABLETS SOLD: 09/27/2019 [facility] 50 mg 08/28/2019 12:00:00 AM EST tablet 120 TAKE ONE TABLET BY MOUTH EVERY 4 TO 6 HOURS NEEDED MAXIMUM DAILY DOSE = 4 TABLETS TAKE ONE TABLET BY MOUTH EVERY 4 TO 6 HOURS NEEDED MAXIMUM DAILY DOSE = 4 TABLETS SOLD: 08/28/2019 [facility] 50 mg 08/28/2019 12:00:00 AM EST tablet 120 TAKE ONE TABLET BY MOUTH EVERY 4 TO 6 HOURS NEEDED MAXIMUM DAILY DOSE = 4 TABLETS TAKE ONE TABLET BY MOUTH EVERY 4 TO 6 HOURS NEEDED MAXIMUM DAILY DOSE = 4 TABLETS SOLD: 12/15/2019 [facility] tramadol hydrochloride 50 MG Oral Tablet TRAMADOL HCL 08/28/2019 12:00:00 AM EST tablet 120 TAKE ONE TABLET BY MOUTH EVERY 4 TO 6 HOURS NEEDED MAXIMUM DAILY DOSE = 4 TABLETS TAKE ONE TABLET BY MOUTH EVERY 4 TO 6 HO URS NEEDED MAXIMUM DAILY DOSE = 4 TABLETS SOLD: 11/02/2019 [facility] 40 mg 08/20/2019 12:00:00 AM EST capsule,delayed release (DR/EC) 90 TAKE ONE CAPSULE BY MOUTH EVERY DAY TAKE ONE CAPSULE BY MOUTH EVERY DAY SOLD: 08/23/2019 [facility] 25 mg 08/20/2019 12:00:00 AM EST tablet 90 TAKE ONE TABLET BY MOUTH EVERY DAY TAKE ONE TABLET BY MOUTH EVERY DAY SOLD: 08/23/2019 [facility] 30 mg 08/20/2019 12:00:00 AM EST tablet extended release 24hr 90 TAKE ONE TABLET BY MOUTH EVERY DAY TAKE ONE TABLET BY MOUTH EVERY DAY SOLD: 02/26/2020 [facility] 25 mg 08/20/2019 12:00:00 AM EST tablet 90 TAKE ONE TABLET BY MOUTH EVERY DAY TAKE ONE TABLET BY MOUTH EVERY DAY SOLD: 11/11/2019 [facility] 40 mg 08/20/2019 12:00:00 AM EST capsule,delayed release (DR/EC) 90 TAKE ONE CAPSULE BY MOUTH EVERY DAY TAKE ONE CAPSULE BY MOUTH EVERY DAY SOLD: 04/15/2020 [facility] 30 mg 08/20/2019 12:00:00 AM EST tablet extended release 24hr 90 TAKE ONE TABLET BY MOUTH EVERY DAY TAKE ONE TABLET BY MOUTH EVERY DAY SOLD: 11/18/2019 [facility] 40 mg 08/20/2019 12:00:00 AM EST capsule,delayed release (DR/EC) 90 TAKE ONE CAPSULE BY MOUTH EVERY DAY TAKE ONE CAPSULE BY MOUTH EVERY DAY SOLD: 11/11/2019 [facility] 25 mg 08/20/2019 12:00:00 AM EST tablet 90 TAKE ONE TABLET BY MOUTH EVERY DAY TAKE ONE TABLET BY MOUTH EVERY DAY SOLD: 02/26/2020 [facility] 40 mg 08/20/2019 12:00:00 AM EST capsule,delayed release (DR/EC) 90 TAKE ONE CAPSULE BY MOUTH EVERY DAY TAKE ONE CAPSULE BY MOUTH EVERY DAY SOLD: 01/27/2020 [facility] 30 mg 08/20/2019 12:00:00 AM EST tablet extended release 24hr 90 TAKE ONE TABLET BY MOUTH EVERY DAY TAKE ONE TABLET BY MOUTH EVERY DAY SOLD: 08/23/2019 [facility] 50 mg 06/20/2019 12:00:00 AM EST tablet 90 TAKE ONE TABLET BY MOUTH EVERY DAY TAKE ONE TABLET BY MOUTH EVERY DAY SOLD: 12/22/2019 [facility] 50 mg 06/20/2019 12:00:00 AM EST tablet 90 TAKE ONE TABLET BY MOUTH EVERY DAY TAKE ONE TABLET BY MOUTH EVERY DAY SOLD: 03/26/2020 [facility] 50 mg 06/20/2019 12:00:00 AM EST tablet 90 TAKE ONE TABLET BY MOUTH EVERY DAY TAKE ONE TABLET BY MOUTH EVERY DAY SOLD: 09/15/2019 [facility] 50 mg 06/20/2019 12:00:00 AM EST tablet 90 TAKE ONE TABLET BY MOUTH EVERY DAY TAKE ONE TABLET BY MOUTH EVERY DAY SOLD: 06/22/2019 [facility] 1 gram 05/07/2019 12:00:00 AM EDT tablet 60 TAKE ONE TABLET BY MOUTH TWICE A DAY ON AN EMPTY STOMACH TAKE ONE TABLET BY MOUTH TWICE A DAY ON AN EMPTY STOMACH SOLD: 07/10/2019 [facility] 1 gram 05/07/2019 12:00:00 AM EDT tablet 60 TAKE ONE TABLET BY MOUTH TWICE A DAY ON AN EMPTY STOMACH TAKE ONE TABLET BY MOUTH TWICE A DAY ON AN EMPTY STOMACH SOLD: 09/15/2019 [facility] 1 gram 05/07/2019 12:00:00 AM EDT tablet 60 TAKE ONE TABLET BY MOUTH TWICE A DAY ON AN EMPTY STOMACH TAKE ONE TABLET BY MOUTH TWICE A DAY ON AN EMPTY STOMACH SOLD: 06/14/2019 [facility] 1 gram 05/07/2019 12:00:00 AM EDT tablet 60 TAKE ONE TABLET BY MOUTH TWICE A DAY ON AN EMPTY STOMACH TAKE ONE TABLET BY MOUTH TWICE A DAY ON AN EMPTY STOMACH SOLD: 08/08/2019 [facility] 1 gram 05/07/2019 12:00:00 AM EDT tablet 60 TAKE ONE TABLET BY MOUTH TWICE A DAY ON AN EMPTY STOMACH TAKE ONE TABLET BY MOUTH TWICE A DAY ON AN EMPTY STOMACH SOLD: 10/23/2019 [facility] 50 mg 03/19/2019 12:00:00 AM EDT tablet 120 TAKE ONE TABLET BY MOUTH EVERY 4 TO 6 HOURS MAXIMUM DAILY DOSE = SIX TABLETS TAKE ONE TABLET BY MOUTH EVERY 4 TO 6 HOURS MAXIMUM DAILY DOSE = SIX TABLETS SOLD: 07/10/2019 [facility] 50 mg 03/19/2019 12:00:00 AM EDT tablet 120 TAKE ONE TABLET BY MOUTH EVERY 4 TO 6 HOURS MAXIMUM DAILY DOSE = SIX TABLETS TAKE ONE TABLET BY MOUTH EVERY 4 TO 6 HOURS MAXIMUM DAILY DOSE = SIX TABLETS SOLD: 06/14/2019 [facility] 50 mg 03/19/2019 12:00:00 AM EDT tablet 120 TAKE ONE TABLET BY MOUTH EVERY 4 TO 6 HOURS MAXIMUM DAILY DOSE = SIX TABLETS TAKE ONE TABLET BY MOUTH EVERY 4 TO 6 HOURS MAXIMUM DAILY DOSE = SIX TABLETS SOLD: 08/06/2019 [facility] 20 mg 10/30/2018 12:00:00 AM EDT tablet 90 TAKE ONE TABLET BY MOUTH EVERY DAY TAKE ONE TABLET BY MOUTH EVERY DAY SOLD: 07/29/2019 [facility] 20 mg 10/30/2018 12:00:00 AM EDT tablet 90 TAKE ONE TABLET BY MOUTH EVERY DAY TAKE ONE TABLET BY MOUTH EVERY DAY SOLD: 07/29/2019 [facility] Insurance Providers Payer name Policy type / Coverage type Policy ID Covered alliance party ID Covered alliance party's relationship to ahuja Policy Ahuja Plan Information MEDICARE BLUE PPO 306 [id number] SP [id number] [id number] SP [id number] MEDICARE BLUE PPO [id number] SP [id number] BLUE CROSS MEDICARE ADVANTAGE [id number] S [id number] EXCELLUS MEDICARE BLUE PPO G [id number] Self [id number] EXCELLUS MEDICARE BLUE PPO G [id number] Self [id number] [facility] MEDIC[facility] COMPLETE G [id number] Self [id number] [facility] MEDICARE ADVANTAGE [id number] S [id number] [facility] MEDICARE [id number] S [id number] MEDICARE COMPLETE [id number] SP [id number] MEDICAID [id number] SP [id number] MEDICARE COMPLETE [id number] SP [id number] MEDICAID M [id number] MEDICARE COMPLETE-UH O [id number] S [id number] [place] () Workers Compensation [id number] Family Depend ent [id number] [facility] Commercial [id number] Self [id number] Workers Compensation Workers Compensation Self BCBS/[employer] Medigap Part B Self [facility] Commercial Self BS/W/Id#Prefix/W ALL #'S Medigap Part B Self MEDICARE COMPLETE [id number] SP [id number] [facility] [id number] SP [id number] [place] PPO [id number] SP [id number] [place] PPO 302/307 [id number] SP [id number] Problems, Conditions, and Diagnoses Code Display Name Description Problem Type Effective Dates Data Source(s) [id number] Essential hypertension Essential hypertension Problem 07/07/2020 12:00:00 AM EST [facility] ([facility], ) [id number] Low back pain Low back pain Problem 05/12/2020 12:00:00 AM EDT [facility] ([facility]) [id number] Depressive disorder Depressive disorder Problem 1 12:00:00 AM EDT [facility] ([facility]) [id number] Gastroesophageal reflux disease Gastroesophageal reflux disease Problem 05/12/2020 12:00:00 AM EDT [facility] ([facility]) [id number] Raynaud's disease Raynaud's disease Problem 05/12 12:00:00 AM EDT [facility] ([facility]) [id number] Hypercholesterolemia Hypercholesterolemia Problem 05/12/2020 12:00:00 AM EDT [facility] ([facility]) [id number] Essential hypertension Essential hypertension Problem 03/29/2020 12:00:00 AM EDT [facility] ([facility]) Results ID Date Data Source [id number] 08/07/2020 11:30:00 AM EST [facility] Name Value Range Interpretation Code Description Data Katelynn rce(s) Supporting Document(s) SARS coronavirus 2 RNA Not Detected [facility] [place] This lab was ordered by [facility] and reported by [facility]. ID Date Data Source [id number] 06/15/2020 02:05:00 PM EST [facility] Name Value Range Interpretation Code Description Data Katelynn rce(s) Supporting Document(s) [facility] ordered by [facility] and reported by [facility]. ID Date Data Source [id number] 06/15/2020 02:05:00 PM EST [facility] Name Value Range Interpretation Code Description Data Katelynn rce(s) Supporting Document(s) Coronavirus 2019 Nasopharygeal Laboratory test result [facility] ([facility]) This nucleic acid amplification test was developed and its performance characteristics determined by [employer]. Nucleic acid amplification tests include PCR and [...] detected) result in this assay. Performed at: [facility] [address] [place] [address] [id number] [employer]in[employer] Apprentice: Jacey Zee PhD, Phone: [phone] Detected ID Date Data Source [id number] 06/09/2020 02:14:00 PM EST [facility] ([facility]) Name Value Range Interpretation Code Description Data Katelynn rce(s) Supporting Document(s) Calcidiol [Mass/volume] in Serum or Plasma 49.6 ng/mL 30.0- 100.0 Normal (applies to non-numeric results) [facility] ([facility]) ID Date Data Source [id number] 06/09/2020 02:14:00 PM EST [facility] ([facility]) Name Value Range Interpretation Code Description Data Katelynn rce(s) Supporting Document(s) Triglycerides Level 79 mg/dL Normal (applies to non-nume thang results) [facility] HDL Cholesterol 69 mg/dL Normal (applies to non-numeric results) [facility]) Cholesterol Level 187 mg/dL Normal (applies to non-numeri c results) [facility]) Non-HDL-C 118 mg/dL Normal (applies to non-numeric resul ts) [facility]) LDL Cholesterol 102 mg/dL Above high normal [facility] ([facility]) Cholesterol Risk Ratio 2.710 Normal (applies to non-n umeric results) [facility]) ID Date Data Source [id number] 06/09/2020 02:14:00 PM EST [facility] ([facility]) Name Value Range Interpretation Code Description Data Katelynn rce(s) Supporting Document(s) Free T4 1.00 ng/dL 0.76-1.46 Normal (applies to non-numeric resul ts) [facility] ([facility]) Thyroid Stimulating Hormone 1.440 uIU/ML 0.358-3.740 Norm al (applies to non- numeric results) [facility] ([facility]) ID Date Data Source [id number] 06/09/2020 02:14:00 PM EST [facility] ([facility]) Name Value Range Interpretation Code Description Data Katelynn rce(s) Supporting Document(s) Glucose, Fasting 79 mg/dL 70-100 Normal (applies to non-numeric results) [facility] ([facility]) Blood Urea Nitrogen 21 mg/dL 7-18 Above high normal [facility] Creatinine For GFR 1.22 mg/dL 0.55-1.30 Normal (applies to non -numeric results) [facility] ([facility]) Sodium Level 138 meq/L 136-145 Normal (applies to non-numeric res ults) [facility] Glomerular Filtration Rate 46.3 Normal (applies to n on-numeric results) [facility] ([facility]) <content>Units are mL/min/1.73 m2</content>
<content></content>
<content>Chronic Kidney Disease Staging per NKF:</content>
<content></content>
<content>Stage I & II GFR >=60 Normal to Mildly Decreased</content>
<content>Stage III GFR 30- 59 Moderately Decreased</content>
<content>Stage IV GFR 15-29 Severely Decreased</content>
<content>Stage V GFR <15 Very Little GFR Left</content>
<content>ESRD GFR <15 on CUSTOM MILLER</content>
<content></content> Carbon Dioxide Level 28 meq/L 21-32 Normal (applies to non-num julián results) [facility] ([facility]) Chloride Level 102 meq/L 98-107 Normal (applies to non-numeric r esults) [facility] ([facility]) Potassium Serum 3.5 meq/L 3.5-5.1 Normal (applies to non-numeric results) [facility] ([facility]) Anion Gap 8 meq/L 8-16 Normal (applies to non-numeric resul ts) [facility] ([facility]) Calcium Level 9.7 mg/dL 8.8-10.2 Normal (applies to non-numeric re sults) [facility] Ast/Sgot 14 U/L 7-37 Normal (applies to non-numeric resul ts) [facility] ([facility]) Alt/SGPT 20 U/L 12-78 Normal (applies to non-numeric resul ts) [facility] ([facility]) Alkaline Phosphatase 64 U/L 45-117 Normal (applies to non-num julián results) [facility] ([facility]) Albumin 4.1 GM/DL 3.2-5.2 Normal (applies to non-numeric resul ts) [facility] ([facility]) Bilirubin,Total 0.6 mg/dL 0.2-1.0 Normal (applies to non-numeric results) [facility] ([facility]) Total Protein 7.6 GM/DL 6.4-8.2 Normal (applies to non-numeric re sults) [facility] ([facility]) Albumin/Globulin Ratio 1.2 1.2-2.2 Normal (applies to non-n umeric results) [facility]) ID Date Data Source [id number] 06/09/2020 02:14:00 PM EST [facility] ([facility]) Name Value Range Interpretation Code Description Data Katelynn rce(s) Supporting Document(s) Red Blood Count 3.98 10 4.00-5.40 Below low normal [facility] ([facility]) White Blood Count 6.9 10 4.0-10.0 Normal (applies to non-numeri c results) [facility] ([facility]) Hematocrit 38.2 % 36.0-47.0 Normal (applies to non-numeric resul ts) [facility] ([facility]) Hemoglobin 11.9 g/dL 12.0-15.5 Below low normal [facility] ( [facility]) Mean Corpuscular Volume 96.0 fl 80.0-96.0 Normal ( applies to non-numeric results) [facility] ([facility]) Mean Corpuscular Hemoglobin 29.9 pg 27.0-33.0 Norm al (applies to non-numeric results) [facility]) Mean Corpuscular HGB Conc 31.2 g/dL 32.0-36.5 Below low normal [facility]) Red Cell Distribution Width 13.2 % 11.5-14.5 Norm al (applies to non-numeric results) [facility] ([facility]) Neutrophils % 60.7 % 36.0-66.0 Normal (applies to non-numeric re sults) [facility] ([facility]) Platelet Count, Automated 337 10 150-450 Normal (applies to non-numeric results) [facility] ([facility]) Wagoner % 9.9 % 0.0-5.0 Above high normal [facility] ([facility]) Lymph % 26.3 % 24.0-44.0 Normal (applies to non-numeric resul ts) [facility] ([facility]) Eos % 2.0 % 0.0-3.0 Normal (applies to non-numeric resul ts) [facility] ([facility]) Immature Granulocyte % 0.1 % 0-3.0 Normal (applies to non-n umeric results) [facility] ([facility]) Baso % 1.0 % 0.0-1.0 Normal (applies to non-numeric resul ts) [facility] ([facility]) Nucleated Red Blood Cell % 0.0 % 0-0 Normal (applies to n on-numeric results) [facility] ([facility]) Neutrophils # 4.2 10 1.5-8.5 Normal (applies to non-numeric re sults) [facility] ([facility]) Lymph # 1.8 10 1.5-5.0 Normal (applies to non-numeric resul ts) [facility] ([facility]) Eos # 0.1 10 0.0-0.5 Normal (applies to non-numeric resul ts) [facility] ([facility]) Wagoner # 0.7 10 0.0-0.8 Normal (applies to non-numeric resul ts) [facility] ([facility]) Baso # 0.1 10 0.0-0.2 Normal (applies to non-numeric resul ts) [facility] ([facility]) ID Date Data Source [id number] 06/09/2020 02:14:00 PM EST [facility] ([facility]) Name Value Range Interpretation Code Description Data Katelynn rce(s) Supporting Document(s) Helicobacter pylori IgG Ab [Units/volume] in Serum 0.27 0.00-0.79 Normal (applies to non-numeric results) [facility] ([facility]) <content>Result Units: Index Value</cont ent>
<content>Negative <0.80</content>
<content>Equivocal 0.80 - 0.89</content>
<content>Positive >0.89</content>
<content> Performed at: RN - [facility]</content>
<content>[address], [place] [id number]</content>
<content>[employer]: Lisha Villa MD, Phone: [phone]</content>
<content></content> Procedure Social History Code Duration Value Status Description Data Source(s ) Smoking 05/12/2020 12:00:00 AM EDT Quit completed Quit [facility] ([facility]) Vital Signs ID Date Data Source UNK Name Value Range Interpretation Code Description Data Source(s) Body surface area Derived from formula 1.59 m2 1.59 m2 [facility] ([facility]) Body weight 62.370 kg 62.370 kg [facility] ([facility]) Martin body weight 100 [lb_av] 100 [lb_av] [facility] ([facility]) Body mass index (BMI) [Ratio] 26.9 kg/m2 26.9 k g/m2 [facility] ([facility]) Body weight 137.50 [lb_av] 137.50 [lb_av] [facility] Body height 60 [in_i] 60 [in_i] [facility] ([facility]) 5'0" Diastolic blood pressure 77 mm[Hg] 77 mm[Hg] [facility] ([facility]) Systolic blood pressure 137 mm[Hg] 137 mm[Hg] M [facility] ([facility]) Martin body weight 100 [lb_av] 100 [lb_av] [facility] ([facility]) Oxygen saturation in Arterial blood by Pulse oximetry 97 % 97 % [facility] ([facility]) Body temperature 97.2 [degF] 97.2 [degF] [facility] ([facility]) Respiratory rate 16 /min 16 /min [facility] ( [facility]) Heart rate 70 /min 70 /min [facility] ([facility]) Body mass index (BMI) [Ratio] 29.3 kg/m2 29.3 k g/m2 [facility] ([facility]) Body weight 143.00 [lb_av] 143.00 [lb_av] [facility] ([facility]) Body height 58.6 [in_i] 58.6 [in_i] [facility] ([facility]) 4'10.60" Diastolic blood pressure 90 mm[Hg] 90 mm[Hg] [facility] ([facility]) Systolic blood pressure 130 mm[Hg] 130 mm[Hg] [facility] ([facility])
[2020-08-12] MEDS ORDERED: FLEET ENEMA PR ONE (10:00)
--- NOTE | 2020-08-12 10:47 | ROOR ---
Patient Name: Kourtney Marie Procedure Date: 08/12/2020 10:32 AM Date of : 1950 Age: 70 Room: [facility] Gender: Female Note Status: Finalized Procedure: Upper GI endoscopy Indications: Suspected esophageal reflux Providers: Angelito Sanford Jr, MD Referring MD: Juliana MACDONALD DO Requesting Provider: Medicines: Propofol per Anesthesia Complications: No immediate complications. Procedure: Pre-Anesthesia Assessment: - Prior to the procedure, a History and Physical was performed, and patient medications and allergies were reviewed. The patient is competent. The risks and benefits of the procedure and the sedation options and risks were discussed with the patient. All questions were answered and informed consent was obtained. Patient identification and proposed procedure were verified by the physician and the nurse in the pre-procedure area and in the procedure room. Mental Status Examination: alert and oriented. Airway Examination: normal oropharyngeal airway and neck mobility. Respiratory Examination: clear to auscultation. CV Examination: normal. ASA Grade Assessment: II - A patient with mild systemic disease. After reviewing the risks and benefits, the patient was deemed in satisfactory condition to undergo the procedure. The anesthesia plan was to use moderate sedation / analgesia (conscious sedation). Immediately prior to administration of medications, the patient was re-assessed for adequacy to receive sedatives. The heart rate, respiratory rate, oxygen saturations, blood pressure, adequacy of pulmonary ventilation, and response to care were monitored throughout the procedure. The physical status of the patient was re-assessed after the procedure. The Endoscope was introduced through the mouth, and advanced to the duodenal bulb. The upper GI endoscopy was accomplished without difficulty. The patient tolerated the procedure well. Findings: The upper third of the esophagus, middle third of the esophagus and lower third of the esophagus were normal. A large hiatal hernia was present. The gastric body, gastric antrum, prepyloric region of the stomach and pylorus were normal. Localized moderately erythematous mucosa without bleeding was found in the gastric fundus. Biopsies were taken with a cold forceps for histology. The duodenal bulb and first portion of the duodenum were normal. Impression: - Normal upper third of esophagus, middle third of esophagus and lower third of esophagus. - Large hiatal hernia. - Normal gastric body, antrum, prepyloric region of the stomach and pylorus. - Erythematous mucosa in the gastric fundus. Biopsied. - Normal duodenal bulb and first portion of the duodenum. Recommendation: - Discharge patient to home (ambulatory). - Return to my office as previously scheduled. Procedure Code(s): --- Professional --- 33547, Esophagogastroduodenoscopy, flexible, transoral; with biopsy, single or multiple Diagnosis Code(s): --- Professional --- K44.9, Diaphragmatic hernia without obstruction or gangrene K31.89, Other diseases of stomach and duodenum CPT copyright 2019 [employer]. All rights reserved. The codes documented in this report are preliminary and upon lotus notes developer review may be revised to meet current compliance requirements. Angelito Sanford MD Angelito Sanford Jr, MD 08/12/2020 10:47:24 AM Electronically signed by Angelito Sanford Jr, MD Number of Addenda: 0 Note Initiated On: 08/12/2020 10:32 AM Estimated Blood Loss: Estimated blood loss: none.
[2020-08-12] MEDS ORDERED: PHENYLephrine 500MCG 5ML (100MCG/ML) SYRINGE As Ordered ONE (10:51)
--- NOTE | 2020-08-12 11:07 | ROOR ---
Patient Name: Kourtney Marie Procedure Date: 08/12/2020 10:33 AM Date of : 1950 Age: 70 Room: [facility] Gender: Female Note Status: Finalized Procedure: Colonoscopy Indications: Screening for colorectal malignant neoplasm Providers: Angelito Sanford Jr, MD Referring MD: Juliana MACDONALD DO Requesting Provider: Medicines: Propofol per Anesthesia Complications: No immediate complications. Procedure: Pre-Anesthesia Assessment: - Prior to the procedure, a History and Physical was performed, and patient medications and allergies were reviewed. The patient is competent. The risks and benefits of the procedure and the sedation options and risks were discussed with the patient. All questions were answered and informed consent was obtained. Patient identification and proposed procedure were verified by the physician and the nurse in the pre-procedure area and in the procedure room. Mental Status Examination: alert and oriented. Airway Examination: normal oropharyngeal airway and neck mobility. Respiratory Examination: clear to auscultation. CV Examination: normal. ASA Grade Assessment: II - A patient with mild systemic disease. After reviewing the risks and benefits, the patient was deemed in satisfactory condition to undergo the procedure. The anesthesia plan was to use moderate sedation / analgesia (conscious sedation). Immediately prior to administration of medications, the patient was re-assessed for adequacy to receive sedatives. The heart rate, respiratory rate, oxygen saturations, blood pressure, adequacy of pulmonary ventilation, and response to care were monitored throughout the procedure. The physical status of the patient was re-assessed after the procedure. The Colonoscope was introduced through the anus and advanced to the cecum, identified by appendiceal orifice and ileocecal valve. The colonoscopy was performed without difficulty. The patient tolerated the procedure well. The quality of the bowel preparation was adequate. Findings: The rectum, recto-sigmoid colon, descending colon, transverse colon, ascending colon, cecum and appendiceal orifice appeared normal. Multiple small and large-mouthed diverticula were found in the sigmoid colon. Non-bleeding internal hemorrhoids were found during endoscopy. The hemorrhoids were medium-sized. A diffuse area of severe melanosis was found in the entire colon. Impression: - The rectum, recto-sigmoid colon, descending colon, transverse colon, ascending colon, cecum and appendiceal orifice are normal. - Diverticulosis in the sigmoid colon. - Non-bleeding internal hemorrhoids. - Melanosis in the colon. - No specimens collected. Recommendation: - Discharge patient to home (ambulatory). - Repeat colonoscopy in 10 years for screening purposes. Procedure Code(s): --- Professional --- 75257, Colonoscopy, flexible; diagnostic, including collection of specimen(s) by brushing or washing, when performed (separate procedure) Diagnosis Code(s): --- Professional --- Z12.11, Encounter for screening for malignant neoplasm of colon K64.8, Other hemorrhoids K63.89, Other specified diseases of intestine K57.30, Diverticulosis of large intestine without perforation or abscess without bleeding CPT copyright 2019 [employer]. All rights reserved. The codes documented in this report are preliminary and upon concession stand attendant review may be revised to meet current compliance requirements. Angelito Sanford MD Angelito Sanford Jr, MD 08/12/2020 11:06:40 AM Electronically signed by Angelito Sanford Jr, MD Number of Addenda: 0 Note Initiated On: 08/12/2020 10:33 AM Estimated Blood Loss: Estimated blood loss: none.
[2020-08-12 11:30] VITALS: BP 139/79
== END 2020-08-12 11:45 | disposition home or self-care (01) ==
LOC: M OPP 09:03
PROVIDERS: ATTEND Surgery
DX: Z12.11 Encounter for screening for malignant neoplasm of colon (principal); K21.9 Gastro-esophageal reflux disease without esophagitis; K57.30 Diverticulosis of large intestine without perforation or abscess without bleeding; K64.8 Other hemorrhoids; K63.89 Other specified diseases of intestine; D13.1 Benign neoplasm of stomach; K44.9 Diaphragmatic hernia without obstruction or gangrene; K31.89 Other diseases of stomach and duodenum; I10 Essential (primary) hypertension; E78.5 Hyperlipidemia, unspecified; R12 Heartburn; F32.9 Major depressive disorder, single episode, unspecified; F41.9 Anxiety disorder, unspecified; Z79.82 Long term (current) use of aspirin; Z79.899 Other long term (current) drug therapy
CPT/HCPCS: 43239; 88305; G0121; J2370; J3010

== ENCOUNTER → 2020-12-01 | Outpatient (CLI) | payer MEDICAID, MEDICARE ==
[~2020-12-01] MED LIST changes: -LIDOCAINE 2% 100MG/5ML SDV (FOR ANES.) As Ordered ONE; -NS 1,000 ML IV ONE; -fentaNYL 100 MCG/2 ML INJECTION (J3010) As Ordered ONE; -propofoL 200 MG/20 ML VIAL As Ordered ONE
== END ==
LOC: M LABSMTC 12:22
PROVIDERS: ATTEND Specialist
DX: Z20.822 Contact with and (suspected) exposure to COVID-19 (principal); K21.9 Gastro-esophageal reflux disease without esophagitis; K44.9 Diaphragmatic hernia without obstruction or gangrene

== ENCOUNTER → 2020-12-01 | Outpatient (CLI) | payer MEDICARE | LOC: M LAB 12:45 | PROVIDERS: ATTEND Specialist | DX: E87.6 Hypokalemia (principal) ==

== ENCOUNTER → 2021-01-28 | Outpatient (CLI) | payer MEDICARE ==
[2021-01-28 13:42] LABS: BASO # 0.1 10^3/uL (0.0-0.2); BASO % 0.9 % (0.0-1.0); EOS # 0.2 10^3/uL (0.0-0.5); EOS % 2.6 % (0.0-3.0); HEMATOCRIT 37.3 % (36.0-47.0); HEMOGLOBIN 11.8 g/dl (12.0-15.5); LYMPH % 28.9 % (24.0-44.0); MEAN CORPUSCULAR HEMOGLOBIN 31.1 pg (27.0-33.0); MEAN CORPUSCULAR HGB CONC 31.6 g/dl (32.0-36.5); MEAN CORPUSCULAR VOLUME 98.4 fl (80.0-96.0); MONO # 0.6 10^3/uL (0.0-0.8); MONO % 7.8 % (2.0-8.0); NEUTROPHILS # 4.2 10^3/uL (1.5-8.5); NEUTROPHILS % 59.5 % (36.0-66.0); PLATELET COUNT, AUTOMATED 318 10^3/uL (150-450); RED BLOOD COUNT 3.79 10^6/uL (4.00-5.40); WHITE BLOOD COUNT 7.1 10^3/uL (4.0-10.0)
[2021-01-28 14:05] LABS: CALCIUM LEVEL 9.4 MG/DL (8.8-10.2); CREATININE FOR GFR 1.04 MG/DL (0.55-1.30); GLOMERULAR FILTRATION RATE 55.6 (>39); MAGNESIUM LEVEL 1.8 MG/DL (1.8-2.4); POTASSIUM SERUM 4.1 MEQ/L (3.5-5.1)
[2021-01-29 18:16] LABS: Lyme Disease IgG/IgM Antibodie <0.91 ISR (0.00-0.90); Lyme Disease IgM Ab Quantitati <0.80 index (0.00-0.79)
== END ==
LOC: M LAB 13:05
PROVIDERS: ATTEND Physician Assistant
DX: K44.9 Diaphragmatic hernia without obstruction or gangrene (principal); E87.6 Hypokalemia; S20.461A Insect bite (nonvenomous) of right back wall of thorax, initial encounter

== ENCOUNTER → 2022-02-16 | Outpatient (CLI) | payer MEDICARE ==
[~2022-02-16] MED LIST changes: -D31000TA2 PO; +VITA100093 PO
[2022-02-16 16:33] LABS: BASO # 0.1 10^3/uL (0.0-0.2); BASO % 1.1 % (0.0-1.0); EOS # 0.2 10^3/uL (0.0-0.5); EOS % 2.4 % (0.0-3.0); HEMATOCRIT 38.8 % (36.0-47.0); HEMOGLOBIN 12.1 g/dl (12.0-15.5); LYMPH # 2.2 10^3/uL (1.5-5.0); LYMPH % 34.6 % (24.0-44.0); MEAN CORPUSCULAR HEMOGLOBIN 31.8 pg (27.0-33.0); MEAN CORPUSCULAR HGB CONC 31.2 g/dl (32.0-36.5); MEAN CORPUSCULAR VOLUME 101.8 fl (80.0-96.0); MONO # 0.5 10^3/uL (0.0-0.8); MONO % 7.2 % (2.0-8.0); NEUTROPHILS # 3.4 10^3/uL (1.5-8.5); NEUTROPHILS % 54.4 % (36.0-66.0); PLATELET COUNT, AUTOMATED 284 10^3/uL (150-450); RED BLOOD COUNT 3.81 10^6/uL (4.00-5.40); WHITE BLOOD COUNT 6.2 10^3/uL (4.0-10.0)
[2022-02-16 17:21] LABS: ALBUMIN 3.8 GM/DL (3.2-5.2); BILIRUBIN,TOTAL 0.5 MG/DL (0.2-1.0); CHOLESTEROL RISK RATIO 2.75 (<5); CREATININE FOR GFR 1.2 MG/DL (0.55-1.30); FREE T4 0.87 NG/DL (0.76-1.46); POTASSIUM SERUM 3.9 MEQ/L (3.5-5.1); THYROID STIMULATING HORMONE 1.98 uIU/ML (0.358-3.740); TOTAL PROTEIN 7.4 GM/DL (6.4-8.2)
== END ==
LOC: M WUC 11:56
PROVIDERS: ATTEND Family Medicine
DX: I10 Essential (primary) hypertension (principal); E78.2 Mixed hyperlipidemia; M51.36 Other intervertebral disc degeneration, lumbar region

== ENCOUNTER → 2022-08-23 | Outpatient (CLI) | payer MEDICARE ==
[2022-08-23 16:39] LABS: BASO # 0.1 10^3/uL (0.0-0.2); EOS # 0.1 10^3/uL (0.0-0.5); EOS % 1.5 % (0.0-3.0); HEMATOCRIT 37.7 % (36.0-47.0); LYMPH # 1.9 10^3/uL (1.5-5.0); LYMPH % 26.2 % (24.0-44.0); MEAN CORPUSCULAR HEMOGLOBIN 32.5 pg (27.0-33.0); MEAN CORPUSCULAR HGB CONC 31.8 g/dl (32.0-36.5); MEAN CORPUSCULAR VOLUME 102.2 fl (80.0-96.0); MONO # 0.5 10^3/uL (0.0-0.8); MONO % 7.5 % (2.0-8.0); NEUTROPHILS # 4.5 10^3/uL (1.5-8.5); NEUTROPHILS % 63.5 % (36.0-66.0); PLATELET COUNT, AUTOMATED 308 10^3/uL (150-450); RED BLOOD COUNT 3.69 10^6/uL (4.00-5.40); WHITE BLOOD COUNT 7.1 10^3/uL (4.0-10.0)
[2022-08-23 17:30] LABS: ALBUMIN 3.8 G/DL (3.2-5.2); BILIRUBIN,TOTAL 0.5 MG/DL (0.3-1.2); CALCIUM LEVEL 9.7 MG/DL (8.3-10.6); CHOLESTEROL RISK RATIO 3.51 (<5); CREATININE FOR GFR 1.14 MG/DL (0.55-1.30); FREE T4 0.93 NG/DL (0.89-1.76); GLOMERULAR FILTRATION RATE 49.7 (>39); HDL CHOLESTEROL 54.1 MG/DL (>40); LDL CHOLESTEROL 113.1 MG/DL (<100); POTASSIUM SERUM 4.2 MMOL/L (3.5-5.1); THYROID STIMULATING HORMONE 2.286 uIU/ML (0.55-4.78); TOTAL PROTEIN 7.2 G/DL (5.7-8.2)
== END ==
LOC: M WUC 10:19
PROVIDERS: ATTEND Family Medicine
DX: E78.2 Mixed hyperlipidemia (principal); I10 Essential (primary) hypertension

== ENCOUNTER → 2022-11-24 | Outpatient (CLI) | payer MEDICARE ==
[2022-11-24 15:03] LABS: BASO # 0.1 10^3/uL (0.0-0.2); BASO % 0.9 % (0.0-1.0); EOS # 0.1 10^3/uL (0.0-0.5); EOS % 1.5 % (0.0-3.0); HEMATOCRIT 38.3 % (36.0-47.0); HEMOGLOBIN 12.1 g/dl (12.0-15.5); LYMPH # 1.8 10^3/uL (1.5-5.0); LYMPH % 26.1 % (24.0-44.0); MEAN CORPUSCULAR HEMOGLOBIN 31.8 pg (27.0-33.0); MEAN CORPUSCULAR HGB CONC 31.6 g/dl (32.0-36.5); MEAN CORPUSCULAR VOLUME 100.8 fl (80.0-96.0); MONO # 0.5 10^3/uL (0.0-0.8); MONO % 7.5 % (2.0-8.0); NEUTROPHILS # 4.4 10^3/uL (1.5-8.5); NEUTROPHILS % 63.9 % (36.0-66.0); PLATELET COUNT, AUTOMATED 285 10^3/uL (150-450); WHITE BLOOD COUNT 6.8 10^3/uL (4.0-10.0)
[2022-11-24 15:30] LABS: CK-MB VALUE MASS < 1.0 NG/ML (<3.6)
[2022-11-24 15:34] LABS: ALBUMIN 3.9 G/DL (3.2-5.2); ALKALINE PHOSPHATASE 57 U/L (46-116); ALT/SGPT 20 U/L (7.0-40); AST/SGOT 13 U/L (<34); BILIRUBIN,TOTAL 0.6 MG/DL (0.3-1.2); BLOOD UREA NITROGEN 22 MG/DL (9-23); CALCIUM LEVEL 9.1 MG/DL (8.3-10.6); CARBON DIOXIDE LEVEL 27 MMOL/L (20-31); CHLORIDE LEVEL 104 MMOL/L (98-107); CHOLESTEROL LEVEL 170 MG/DL (<200); CHOLESTEROL RISK RATIO 2.58 (<5); CREATININE FOR GFR 1.03 MG/DL (0.55-1.30); GLOMERULAR FILTRATION RATE 55.9 (>39); GLUCOSE, FASTING 88 MG/DL (74-106); HDL CHOLESTEROL 65.7 MG/DL (>40); LDL CHOLESTEROL 85.9 MG/DL (<100); NON-HDL-C 104.3 MG/DL; POTASSIUM SERUM 4.4 MMOL/L (3.5-5.1); SODIUM LEVEL 138 MMOL/L (136-145); TOTAL PROTEIN 7.1 G/DL (5.7-8.2); TRIGLYCERIDES LEVEL 92 MG/DL (<150)
[2022-11-24 15:36] LABS: CPK CREATINE PHOSPHOKINASE 78 U/L (34-145); MB/CK RELATIVE INDEX 1.28 (< OR =4)
== END ==
LOC: M WUC 11:19
PROVIDERS: ATTEND Physician Assistant
DX: R07.89 Other chest pain (principal)

== ENCOUNTER → 2023-05-01 | Outpatient (CLI) | payer MEDICARE, MEDICAID ==
[~2023-05-01] MED LIST changes: +PROHANCE 279.3MG/ML 15ML VIAL As Ordered ONE
== END ==
LOC: M RAD 10:39
PROVIDERS: ATTEND Family Medicine
DX: R92.8 Other abnormal and inconclusive findings on diagnostic imaging of breast (principal)
CPT/HCPCS: A9576; C8908

== ENCOUNTER → 2023-08-15 | Outpatient (CLI) | payer MEDICARE, MEDICAID ==
[~2023-08-15] MED LIST changes: -PROHANCE 279.3MG/ML 15ML VIAL As Ordered ONE
[2023-08-15 16:56] LABS: BASO # 0.1 10^3/uL (0.0-0.2); BASO % 1.1 % (0.0-1.0); EOS # 0.2 10^3/uL (0.0-0.5); EOS % 2.6 % (0.0-3.0); HEMATOCRIT 36.9 % (36.0-47.0); HEMOGLOBIN 11.5 g/dl (12.0-15.5); LYMPH # 2.2 10^3/uL (1.5-5.0); LYMPH % 32.9 % (24.0-44.0); MEAN CORPUSCULAR HEMOGLOBIN 31.7 pg (27.0-33.0); MEAN CORPUSCULAR HGB CONC 31.2 g/dl (32.0-36.5); MEAN CORPUSCULAR VOLUME 101.7 fl (80.0-96.0); MONO # 0.7 10^3/uL (0.0-0.8); MONO % 10.6 % (2.0-8.0); NEUTROPHILS # 3.5 10^3/uL (1.5-8.5); NEUTROPHILS % 52.6 % (36.0-66.0); PLATELET COUNT, AUTOMATED 279 10^3/uL (150-450); RED BLOOD COUNT 3.63 10^6/uL (4.00-5.40); WHITE BLOOD COUNT 6.6 10^3/uL (4.0-10.0)
[2023-08-15 17:16] LABS: FREE T4 0.92 NG/DL (0.89-1.76); THYROID STIMULATING HORMONE 2.373 uIU/ML (0.55-4.78)
[2023-08-15 17:32] LABS: ALBUMIN 3.8 G/DL (3.2-5.2); BILIRUBIN,TOTAL 0.5 MG/DL (0.3-1.2); CALCIUM LEVEL 8.9 MG/DL (8.3-10.6); CHOLESTEROL RISK RATIO 2.75 (<5); CREATININE FOR GFR 1.04 MG/DL (0.55-1.30); GLOMERULAR FILTRATION RATE 55.1 (>39); HDL CHOLESTEROL 56.9 MG/DL (>40); LDL CHOLESTEROL 86.7 MG/DL (<100); NON-HDL-C 100.1 MG/DL; POTASSIUM SERUM 4.1 MMOL/L (3.5-5.1)
== END ==
LOC: M WUC 12:38
PROVIDERS: ATTEND Family Medicine
DX: I10 Essential (primary) hypertension (principal); E78.2 Mixed hyperlipidemia